=== PATIENT | female | born 2000 | race Two or more races ===

== ENCOUNTER 2023-12-12 20:41 | Emergency (ER) | payer SELFPAY ==
[2023-12-12] MEDS ORDERED: Rabies Vaccine Human 2.5 UNITS VIAL ONE (22:04)
[2023-12-12] MEDS ORDERED: Rabies Immune Globulin/PF 300 UNITS/ML VIAL ONE (22:05)
== END 2023-12-12 22:52 | disposition home or self-care (01) ==
LOC: ERS 20:41
DX: S60.511D Abrasion of right hand, subsequent encounter (principal); W55.03XD Scratched by cat, subsequent encounter; Z23 Encounter for immunization
CPT/HCPCS: 90375; 90471; 90675; 96372